=== PATIENT | male | born 1995 | race Caucasian/White ===

== ENCOUNTER 2016-11-10 07:46 | Day surgery (SDC) | payer MEDICAID ==
[2016-10-22 16:32] VITALS: BMI 23.4
[~2016-11-10 07:46] MED LIST: ceFAZolin IV 2 gm in Dextrose 0 GM/0 ML BAG IVPB ONE
[2016-11-10] MEDS ORDERED: Acetaminophen/Codeine elixir 120-12mg/5ml PO PRN (09:27)
[2016-11-10] MEDS ORDERED: Dextrose 5%/0.45% NS 1,000 ML IV SCH (09:30)
[2016-11-10] MEDS ORDERED: Lactated Ringer's 1,000 ML IV ONE (09:42)
[2016-11-10] MEDS ORDERED: Midazolam 2 MG/2 ML VIAL ONE (09:43)
[2016-11-10] MEDS ORDERED: Propofol 10 mg/ml Inj (20 ML) ONE (09:43)
[2016-11-10] MEDS ORDERED: ceFAZolin IV 1 gm in Dextrose 1 GM/50 ML BAG IVPB ONE (09:50)
[2016-11-10] MEDS ORDERED: HYDROmorphone 0.5 mg/0.5 ml ISec IVP PRN (10:23)
[2016-11-10 12:44] VITALS: O2SAT 100
[2016-11-10 15:05] VITALS: BP 112/54; PULSE 86; RESP 18; TEMP 97.9
--- NOTE | 2016-11-13 14:51 | OP ---
PROCEDURE DATE: 11/10/2016 PREOPERATIVE DIAGNOSIS: Chronic tonsillitis. POSTOPERATIVE DIAGNOSIS: Chronic tonsillitis. PROCEDURE: Adenotonsillectomy. SIGNIFICANT FINDINGS: Chronically infected tonsils. DESCRIPTION OF PROCEDURE: The patient was brought in room, placed in a supine position. Anesthesia was initiated through an ET tube. Shoulder roll was placed, neck extended. The patient was draped i n the usual manner. Mouth gag was placed in the oral cavity, opened and suspended on the [employer] usual manner. Right tonsil was grasped, pulled medially. Incision was made in the anterior tonsi llar pillar using Coblation. Dissection was then done between tonsil and tonsillar fossa using Cobla tion until the tonsil was removed. Bleeding was controlled using Coblation. Next, the other tonsil was grasped, pulled medially. Incision was made in the anterior tonsillar pillar using Coblation. D issection was done between tonsil and tonsillar fossa using Coblation until the tonsil was removed. Bleeding was controlled using Coblation. Both tonsillar beds were rubbed vigorously with Coblation w and. No bleeding was noted. Mouth gag was let down for 30 seconds, put back up, no bleeding was not ed. Red rubber catheters were inserted into the nasal cavity, taken out the mouth and then clamped i n order to provide retraction of the soft palate. Mirror was used to visualize the adenoids, which w ere noted to be enlarged and melted down using Coblation. Bleeding was controlled using Coblation. Red rubber catheters were removed. The mouth gag was taken down and removed. The patient was taken off anesthesia and taken to recovery room in stable manner. Eris Talley MD cc: [id number] TT: 11/13/2016 13:10:11 en
== END 2016-11-10 13:55 | disposition home or self-care (01) ==
LOC: C.SDS 07:46
PROVIDERS: ATTEND Otolaryngology
DX: J35.01 Chronic tonsillitis (principal)
CPT/HCPCS: 42821; 88304; J0690; J1100; J1170; J2250; J2405; J2704; J3010; J7040; J7120

== ENCOUNTER 2016-11-15 10:20 | Emergency (ER) | payer MEDICAID ==
[2016-11-15 10:29] VITALS: BMI 23.8
[2016-11-15 10:30] VITALS: RESP 18; TEMP 98.5; O2SAT 97
--- NOTE | 2016-11-15 12:52 | C.PDOC ---
History Of Present Illness 21y/o M, presents to the emergency department with complaints of throat pain. Patient is s/p tonsillectomy five days ago. States he ran out of pain killers. Last dose was last night. States when he woke up this morning, he was unable to swallow, resulting in him coming to the ED for evaluation. Pt currently taking Augmentin. Denies vomiting, fevers or chills. Time Seen by Provider: 11/15/16 11:04 Chief Complaint (Nursing): ENT Problem History Per: Patient History/Exam Limitations: None Onset/Duration Of Symptoms: Days Current Symptoms Are (Timing): Still Present Past Medical History Reviewed: Historical Data, Nursing Documentation, Vital Signs Vital Signs: Last Vital Signs Temp 98.5 F 11/15/16 13:12 Pulse 87 11/15/16 13:12 Resp 18 11/15/16 13:12 BP 127/85 11/15/16 13:12 Pulse Ox 97 11/15/16 14:10 - Medical History PMH: Denies: Chronic Kidney Disease Surgical History: Tonsillectomy (11/10/2016) Family History: States: No Known Family Hx - Social History Hx Tobacco Use: No Hx Alcohol Use: No Hx Substance Use: No - Immunization History Hx Tetanus Toxoid Vaccination: No Hx Influenza Vaccination: No Hx Pneumococcal Vaccination: No Review Of Systems Except As Marked, All Systems Reviewed And Found Negative. Constitutional: Negative for: Fever, Chills ENT: Positive for: Throat Pain Respiratory: Negative for: Cough, Shortness of Breath Gastrointestinal: Negative for: Vomiting Physical Exam - Physical Exam Appears: Non-toxic, No Acute Distress Skin: Warm, Dry, No Rash Head: Atraumatic Eye(s): bilateral: Normal Inspection Nose: Normal Oral Mucosa: Moist Lips: Normal Appearing Throat: Erythema, Exudate (granulations), No Drooling, Other (patent aiway, no bleeding, normal voice) Neck: Normal ROM, Supple Extremity: Normal ROM Neurological/Psych: Oriented x3 ED Course And Treatment O2 Sat by Pulse Oximetry: 97 Progress Note: Patient was treated with Toradol IM and is stable to be d/c home. He has an appointment with on 11/17/16. Disposition - Disposition Referrals: Eris Talley MD [Staff Provider] - Disposition: HOME/ ROUTINE Disposition Time: 12:49 Condition: STABLE Additional Instructions: Follow up with as scheduled. Return to ED if feel worse. Prescriptions: Ibuprofen Susp [Motrin Oral Susp] 20 ml PO Q6 #600 ml Oxycodone HCl/Acetaminophen [Oxycodone-Acetaminophn 5-325/5] 5 ml PO .Q4-6H # 150 ml Instructions: Oxycodone/Acetaminophen (By mouth) - Clinical Impression Clinical Impression: Post-tonsillectomy pain - Scribe Statement The provider has reviewed the documentation as recorded by the Venkata Evans All medical record entries made by the Vipinibreba were at my direction and personally dictated by me. I have reviewed the chart and agree that the record accurately reflects my personal performance of the history, physical exam, medical decision making, and the department course for this patient. I have also personally directed, reviewed, and agree with the discharge instructions and disposition.
[2016-11-15 13:14] VITALS: BP 127/85; PULSE 87
== END 2016-11-15 13:13 | disposition home or self-care (01) ==
LOC: C.ER 10:20
DX: G89.18 Other acute postprocedural pain (principal)
CPT/HCPCS: 96372; 99283; J1885